=== PATIENT | female | born 1975 | race Caucasian/White ===

== ENCOUNTER 2023-02-01 11:47 | Outpatient (RCR) | payer BC, SELFPAY | END 2023-02-01 13:45 | disposition home or self-care (01) | LOC: RPT 11:47 | PROVIDERS: ATTENDING PHYSICIAN Physical Medicine & Rehabilitation; FAMILY PHYSICIAN Nurse Practitioner Primary Care | DX: Z48.811 Encounter for surgical aftercare following surgery on the nervous system (principal); L72.0 Epidermal cyst; Z73.6 Limitation of activities due to disability | CPT/HCPCS: 97530 ==